=== PATIENT | female | born 1970 | race Caucasian/White ===

== ENCOUNTER 2019-05-12 16:28 | Emergency (ER) | payer MEDICAID ==
[2019-05-12 17:24] LABS: BILIRUBIN,URINE NEGATIVE (NEGATIVE); GLUCOSE, URINE (UA) NEGATIVE (NEGATIVE); KETONES,URINE (UA) NEGATIVE (NEGATIVE); LEUKOCYTE ESTERASE, URINE NEGATIVE (NEGATIVE); NITRITE,URINE POSITIVE (NEGATIVE); OCCULT BLOOD,URINE NEGATIVE (NEGATIVE); PROTEIN,URINE NEGATIVE (NEGATIVE); UROBILINOGEN,URINE 0.2 (NORMAL) E.U./dL (NORMAL)
[2019-05-12 17:26] LABS: CLARITY,URINE CLEAR (CLEAR); HCG UR QUAL NEGATIVE
[2019-05-12 17:34] LABS: BACTERIA,URINE Many /HPF (None Seen); MUCUS,URINE Few Strands; SQUAMOUS EPITHELIAL CELL,UR RARE Squamous (<= Few)
--- NOTE | 2019-05-12 17:51 | ED Physician Documentation ---
PD HPI FEMALE - Stated complaint Stated Complaint: FEMALE - Chief complaint Chief Complaint: Abd Pain - History obtained from History obtained from: Patient - History of Present Illness Timing - onset: How many days ago (5) Timing - duration: Days (5) Timing - details: Gradual onset, Still present Associated symptoms: Back pain, Dysuria, Urinary frequency Similar symptoms before: Diagnosis (pyelo) Recently seen: Not recently seen - Additional information Additional information: Previously well 48-year-old female who was recently moved here about 6 weeks ago has developed some urinary urgency and frequency and this is begin to bother her more and more over the past several days. She is finding some incontinence associated with the urgency. When she developed flank pain she decided to come to the emergency department. She has some slight nausea she has not had a fever. Review of Systems Constitutional: denies: Fever Eyes: denies: Decreased vision Ears: denies: Ear pain Nose: denies: Congestion Throat: denies: Sore throat Respiratory: denies: Dyspnea, Cough GI: reports: Nausea. denies: Abdominal Pain, Vomiting : reports: Dysuria, Frequency, Incontinent Skin: denies: Rash Musculoskeletal: reports: Back pain. denies: Neck pain, Extremity pain PD PAST MEDICAL HISTORY - Present Medications Home Medications: Ambulatory Orders Medication Instructions Recorded Confirmed Sulfamethox/Trimeth 800/160 1 each PO BID #14 tablet 05/12/19 [Bactrim Ds] - Allergies Allergies/Adverse Reactions: Allergies Allergy/AdvReac Type Severity Reaction Status Date / Time No Known Drug Allergies Allergy Verified 05/12/19 16:40 - Social History Does the pt smoke?: No Smoking Status: Never smoker PD ED PE NORMAL - Vitals Vital signs reviewed: Yes (tachy and hypertensive) - General General: Alert and oriented X 3, No acute distress, Well developed/nourished - HEENT HEENT: Atraumatic, PERRL, EOMI - Respiratory Respiratory: No respiratory distress - Back Back: Other (Right CVA tenderness ) - Derm Derm: Normal color, Warm and dry, No rash - Extremities Extremities: No deformity, No edema - Neuro Neuro: Alert and oriented X 3, land department head 2-12 intact, No motor deficit, No sensory deficit, Normal speech Eye Opening: Spontaneous Motor: Obeys Commands Verbal: Oriented GCS Score: 15 - Psych Psych: Normal mood, Normal affect Results - Vitals Vitals: Vital Signs - 24 hr 05/12/19 16:39 Temperature 37 C Heart Rate 103 H Respiratory 20 Rate Blood Pressure 140/83 H O2 Saturation 98 Oxygen O2 Source Room air - Labs Labs: Laboratory Tests 05/12/19 05/12/19 17:13 17:13 Urine Color YELLOW Urine Clarity CLEAR Urine pH 6.0 Ur Specific [place] 1.025 1.025 Urine Protein NEGATIVE Urine Glucose (UA) NEGATIVE Urine Ketones NEGATIVE Urine Occult Blood NEGATIVE Urine Nitrite POSITIVE H Urine Bilirubin NEGATIVE Urine Urobilinogen 0.2 (NORMAL) Ur Leukocyte Esterase NEGATIVE Urine RBC 6-10 H Urine WBC 4-5 Ur Squamous Epith Cells RARE Squamous Urine Bacteria Many H Urine Mucus Few Strands Ur Microscopic Review INDICATED Urine Culture Comments INDICATED Urine HCG, Qual NEGATIVE PD MEDICAL DECISION MAKING - ED course Complexity details: reviewed results, re-evaluated patient, considered differential, d/w patient ED course: 48 y/o female with right peylo is administered IM rocpehin and we will put her on a course of septra. Departure - Departure Disposition: 01 Home, Self Care Clinical Impression: Pyelonephritis Condition: Stable Instructions: ED Kidney Infec Female Follow-Up: [facility] [Provider Group] Prescriptions: Sulfamethox/Trimeth 800/160 [Bactrim Ds] 1 each PO BID #14 tablet Forms: Activity restrictions
[2019-05-12] MEDS ORDERED: LIDOCAINE 1% 2 ML VIAL MC ONE (17:52)
[2019-05-12] MEDS ORDERED: cefTRIAXone 1 GM VIAL IM STA (17:52)
[2019-05-12 18:47] VITALS: BP 153/100
== END 2019-05-12 18:47 | disposition home or self-care (01) ==
LOC: ED 16:28
DX: N12 Tubulo-interstitial nephritis, not specified as acute or chronic (principal)
CPT/HCPCS: 81001; 81003; 81025; 87077; 87086; 87181; 96372; 99283; 99284

== ENCOUNTER 2019-06-24 22:33 | Emergency (ER) | payer MEDICAID ==
[2019-06-24 22:43] VITALS: BP 140/90
[2019-06-24 22:59] LABS: BASOPHILS # (AUTO) 0.1 10^3/uL (0.0-0.1); BASOPHILS % (AUTO) 0.6 %; EOSINOPHILS # (AUTO) 0.3 10^3/uL (0.0-0.7); EOSINOPHILS % (AUTO) 2.8 %; HGB - HEMOGLOBIN 13.8 g/dL (12.0-16.0); LYMPHOCYTES # (AUTO) 3.3 10^3/uL (1.5-3.5); LYMPHOCYTES % (AUTO) 30.7 %; MEAN CORPUSCULAR HEMOGLOBIN 29.7 pg (27.0-31.0); MEAN CORPUSCULAR HGB CONC 32.1 g/dL (32.0-36.0); MEAN CORPUSCULAR VOLUME 92.7 fL (81.0-99.0); MEAN PLATELET VOLUME 9.8 fL (7.9-10.8); NEUTROPHILS % (AUTO) 56.3 %; PLT - PLATELET COUNT 224 10^3/uL (130-450); RED BLOOD COUNT 4.64 10^6/uL (4.20-5.40); RED CELL DISTRIBUTION WIDTH 13.3 % (12.0-15.0); WHITE BLOOD COUNT 10.6 x10^3/uL (4.8-10.8)
[2019-06-24 23:13] LABS: ALBUMIN 3.7 g/dL (3.2-5.5); ALBUMIN/GLOBULIN RATIO 1.1 (1.0-2.2); BILIRUBIN,TOTAL 0.2 mg/dL (0.2-1.0); CALCIUM 8.9 mg/dL (8.5-10.3); CREATININE 0.7 mg/dL (0.4-1.0); TOTAL PROTEIN 7.1 g/dL (6.7-8.2)
--- NOTE | 2019-06-24 23:26 | XRAY Report ---
Reason: Chest pressure Procedure Date: 06/24/2019 Accession Number: [id number] / [id number] Procedure: XR - Chest 2 View X-Ray CPT Code: 08664 Final Report FULL RESULT: EXAM: CHEST RADIOGRAPHY EXAM DATE: 06/24/2019 11:03 PM. CLINICAL HISTORY: Chest pressure. COMPARISON: None. TECHNIQUE: 2 views. FINDINGS: Lungs/Pleura: No focal opacities evident. No pleural effusion. No pneumothorax. Normal volumes. Mediastinum: Heart and mediastinal contours are unremarkable. Other: None. IMPRESSION: Normal 2-view chest radiography. RADIA
[2019-06-24] MEDS ORDERED: BENZONATATE 100 MG CAPSULE PO STA (23:27)
--- NOTE | 2019-06-24 23:43 | ED Physician Documentation ---
PD HPI CHEST PAIN - Stated complaint Stated Complaint: SOA/CHEST PX - Chief complaint Chief Complaint: Resp - Additional information Additional information: This is a 48-year-old female who presents with some tightness in her chest and cough. Patient recently quit smoking, she states that over the last several days she has had a cough which is productive of a small amount of clear sputum. She feels like her breathing is a bit tight, But she does not have actual chest pain. She has had relief of the symptoms in the past with an albuterol inhaler, though it sound like she does not hold a formal diagnosis of COPD. She denies any leg swelling, pleuritic chest pain, history of blood clots. She denies any cardiac history. No fever. She says it feel like she has a bit of bronchitis. 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 : None HEENT: None Psych: None Musculoskeletal: None Derm: None - Past Surgical History Past Surgical History: No - Present Medications Home Medications: Ambulatory Orders Medication Instructions Recorded Confirmed Sulfamethox/Trimeth 800/160 1 each PO BID #14 tablet 05/12/19 [Bactrim Ds] Albuterol Sulfate [Proair Hfa 2 puffs IH Q4H PRN #1 hfa.aer.ad 06/24/19 Inhaler] Benzonatate [Tessalon Perle] 100 - 200 mg PO TID PRN #30 capsule 06/24/19 - Allergies Allergies/Adverse Reactions: Allergies Allergy/AdvReac Type Severity Reaction Status Date / Time No Known Drug Allergies Allergy Verified 06/24/19 22:43 - Social History Does the pt smoke?: Yes Smoking Status: Current every day smoker Does the pt drink ETOH?: Yes Does the pt have substance abuse?: No - Immunizations Immunizations are current?: Yes - POLST Patient has POLST: No PD ED PE NORMAL - Vitals Vital signs reviewed: Yes - General General: Alert and oriented X 3, No acute distress - HEENT HEENT: PERRL - Neck Neck: Supple, no meningeal sign - Cardiac Cardiac: Other (Regular rate and rhythm on my exam) - Respiratory Respiratory: No respiratory distress, Clear bilaterally - Abdomen Abdomen: Soft, Non tender, Non distended - Derm Derm: Warm and dry - Extremities Extremities: No deformity - Neuro Neuro: Alert and oriented X 3 - Psych Psych: Normal mood, Normal affect Results - Vitals Vitals: Vital Signs - 24 hr 06/24/19 06/24/19 22:35 22:53 Temperature 36.6 C 36.6 C Heart Rate 101 H 101 H Respiratory 18 18 Rate Blood Pressure 140/90 H 140/90 H O2 Saturation 97 97 Oxygen O2 Source Room air - EKG (time done) 22:37 Other comments: Other comments (Rate 91, rhythm sinus with occasional PVC. There is no ST segment elevation. There is no significant ST segment depressio n. There is some T wave flattening in the inferior leads. [place] interval is borderline prolonged) - Labs Labs: Laboratory Tests 06/24/19 06/24/19 06/24/19 22:55 22:55 22:55 WBC 10.6 RBC 4.64 Hgb 13.8 Hct 43.0 MCV 92.7 MCH 29.7 MCHC 32.1 RDW 13.3 Plt Count 224 MPV 9.8 Neut # (Auto) 6.0 Lymph # (Auto) 3.3 [place] # (Auto) 1.0 Eos # (Auto) 0.3 Baso # (Auto) 0.1 Absolute Nucleated RBC 0.00 Nucleated RBC % 0.0 Sodium 140 Potassium 4.1 Chloride 104 Carbon Dioxide 26 Anion Gap 10.0 BUN 15 Creatinine 0.7 Estimated GFR (MDRD) 90 Glucose 131 H Calcium 8.9 Total Bilirubin 0.2 AST 25 ALT 28 Alkaline Phosphatase 74 Troponin I High Sens < 2.3 L Total Protein 7.1 Albumin 3.7 Globulin 3.4 Albumin/Globulin Ratio 1.1 Lipase 34 - Rads (name of study) CXR Radiology: Other (No acute cardiopulmonary abnormality) PD MEDICAL DECISION MAKING - ED course Complexity details: considered differential (Bronchitis, pneumonia, upper respiratory infection, COPD, Pneumothorax, ACS, dysrhythmia, PE) ED course: Patient is well-appearing on examination, she has a cough but her lungs sound clear. Chest x-ray shows no acute cardiopulmonary abnormality. Labs are drawn and are unremarkable, she has no leukocytosis, her troponin is normal. Her EKG does not show convincing signs of ischemia or dysrhythmia. Her history makes cardiac cause of her symptoms unlikely, this appears to be a viral syndrome, perhaps exacerbated by her recent cessation of smoking. She has no signs or history of blood clots, no pain in her chest, her oxygen saturation is normal, she has no signs of DVT, and pulmonary embolism is extremely unlikely. I discu ssed supportive care, prescribed her Tessalon Perles as well as albuterol, and recommended close follow-up with her primary care provider if she is not having improvement. I also discussed return precautions. Patient agrees and was discharged home in good condition Departure - Departure Disposition: 01 Home, Self Care Clinical Impression: Cough Condition: Good Follow-Up: Your,PCP [Other] Prescriptions: Albuterol Sulfate [Proair Hfa Inhaler] 2 puffs IH Q4H PRN #1 hfa.aer.ad PRN Reason: Shortness Of Air/Wheezing Benzonatate [Tessalon Perle] 100 - 200 mg PO TID PRN #30 capsule PRN Reason: Cough Comments: You were seen today for some cough and shortness of breath. I do not see signs of pneumonia or issues with your heart today. Please try the Tessalon Perles and the albuterol inhaler. If you are having worsening shortness of breath, or other concerning symptoms such as fever, coughing up blood, chest pain,or any other concerning symptoms please return to the emergency department Discharge Date/Time: 06/24/19 23:52
== END 2019-06-24 23:52 | disposition home or self-care (01) ==
LOC: ED 22:33
DX: R05 Cough (principal); R06.02 Shortness of breath; I49.3 Ventricular premature depolarization; Z87.891 Personal history of nicotine dependence
CPT/HCPCS: 36415; 71046; 80053; 83690; 84484; 85025; 93005; 99284; A9270

== ENCOUNTER 2019-09-22 08:59 | Outpatient (CLI) | payer MEDICAID ==
--- NOTE | 2019-09-22 20:04 | XRAY Report ---
Reason: NECK AND BACK PAIN Procedure Date: 09/22/2019 Accession Number: [id number] / [id number] Procedure: XRN - Cervical Spine 2 View CPT Code: Final Report FULL RESULT: EXAM: CERVICAL SPINE RADIOGRAPHY EXAM DATE: 09/22/2019 09:21 AM. CLINICAL HISTORY: Right upper limb numbness for 1 year. COMPARISONS: None. TECHNIQUE: 4 views. FINDINGS: Alignment: There is straightening of the cervical lordosis. Bones: The cervical vertebral bodies and posterior elements are well visualized from the skull base through C7-T1. No fractures or bone lesions. Disks: There are small endplate osteophytes at C5-C6. The disk spaces are preserved. Facets: No degenerative disease. Soft Tissues: Normal. No prevertebral soft tissue swelling. The visualized lung apices are clear. IMPRESSION: Mild degenerative change of the cervical spine. RADIA
== END 2019-09-22 09:00 | disposition home or self-care (01) ==
LOC: DI.N 08:59
PROVIDERS: ATTEND Family Medicine
DX: M54.2 Cervicalgia (principal); M54.9 Dorsalgia, unspecified; M47.892 Other spondylosis, cervical region
CPT/HCPCS: 72040

== ENCOUNTER 2019-11-06 20:54 | Emergency (ER) | payer MEDICAID ==
--- NOTE | 2019-11-06 21:23 | ED Physician Documentation ---
History of Present Illness - Stated complaint Stated Complaint: SOA, TIGHTNESS IN CHEST/UPPER BACK - Chief complaint Chief Complaint: Resp - History obtained from History obtained from: Patient (49-year-old woman moved up from [place] for a job change in May. Ever since then she is had a lot of trouble with shortness of breath. She does have more problems when she is supine or exertional. She denies pedal edema or calf pain. She has some diffuse back and chest pain with this. She has a minimally productive cough. She was on antibiotics and steroids about 3 weeks ago which were briefly helpful.) Review of Systems Constitutional: reports: Fatigue. denies: Fever, Chills Throat: denies: Sore throat Cardiac: reports: Chest pain / pressure. denies: Palpitations, Pedal edema, Calf pain Respiratory: reports: Dyspnea, Cough. 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 HEENT: None Psych: None Musculoskeletal: None Derm: None - Past Surgical History Past Surgical History: No - Present Medications Home Medications: Ambulatory Orders Medication Instructions Recorded Confirmed Sulfamethox/Trimeth 800/160 1 each PO BID #14 tablet 05/12/19 [Bactrim Ds] Albuterol Sulfate [Proair Hfa 2 puffs IH Q4H PRN #1 hfa.aer.ad 06/24/19 Inhaler] Benzonatate [Tessalon Perle] 100 - 200 mg PO TID PRN #30 capsule 06/24/19 Albuterol Sulf [Ventolin Hfa 1 - 2 puffs INH Q4HR PRN #1 inhaler 11/06/19 Inhaler] Doxycycline Hyclate 100 mg PO BID #20 capsule 11/06/19 Fluticasone/Salmeterol [Advair 1 each IH BID #3 blst.w.dev 11/06/19 250-50 Diskus] predniSONE [Deltasone] 20 mg PO [id number] #[id number] tab 11/06/19 - Allergies Allergies/Adverse Reactions: Allergies Allergy/AdvReac Type Severity Reaction Status Date / Time No Known Drug Allergies Allergy Verified 06/24/19 22:43 - Social History Does the pt smoke?: No Smoking Status: Former smoker Does the pt drink ETOH?: Yes Does the pt have substance abuse?: No - Immunizations Immunizations are current?: Yes - POLST Patient has POLST: No PD ED PE NORMAL - Vitals Vital signs reviewed: Yes (Tachycardic, hypertensive) - General General: Alert and oriented X 3, No acute distress - Neck Neck: Supple, no meningeal sign, No bony TTP - Cardiac Cardiac: RRR, No murmur - Respiratory Respiratory: No respiratory distress, Other (Slightly diminished throughout without focal findings) - Abdomen Abdomen: Non tender - Extremities Extremities: No edema, No calf tenderness / cord - Neuro Neuro: Alert and oriented X 3, Normal speech Results - Vitals Vitals: Vital Signs - 24 hr 11/06/19 11/06/19 11/06/19 20:59 21:02 21:48 Temperature 36.1 C L Heart Rate 107 H 107 H 99 Respiratory 18 18 15 Rate Blood Pressure 153/114 H 153/114 H 129/85 H O2 Saturation 98 98 95 11/06/19 23:02 Temperature Heart Rate 90 Respiratory 16 Rate Blood Pressure 114/77 O2 Saturation 96 Oxygen O2 Source Room air - EKG (time done) 2107 Rate: Rate (enter#) (96) Rhythm: NSR (with freq pvcs) [place]: Normal Intervals: Normal [place] QRS: Normal Ischemia: Non specific changes Computer interpretation: Agree with computer - Labs Labs: Laboratory Tests 11/06/19 11/06/19 11/06/19 21:30 21:30 21:30 WBC 11.7 H RBC 4.76 Hgb 14.6 Hct 43.5 MCV 91.4 MCH 30.7 MCHC 33.6 RDW 13.0 Plt Count 269 MPV 9.3 Neut # (Auto) 7.4 H Lymph # (Auto) 3.0 [place] # (Auto) 0.8 Eos # (Auto) 0.3 Baso # (Auto) 0.1 Absolute Nucleated RBC 0.00 Nucleated RBC % 0.0 Sodium 137 Potassium 3.9 Chloride 103 Carbon Dioxide 23 Anion Gap 11.0 BUN 16 Creatinine 0.6 Estimated GFR (MDRD) 107 Glucose 115 H Calcium 8.5 Total Bilirubin 0.4 AST 38 ALT 40 Alkaline Phosphatase 79 Troponin I High Sens 3.1 B-Natriuretic Peptide Total Protein 7.7 Albumin 3.9 Globulin 3.8 Albumin/Globulin Ratio 1.0 Lipase 30 11/06/19 21:30 WBC RBC Hgb Hct MCV MCH MCHC RDW Plt Count MPV Neut # (Auto) Lymph # (Auto) [place] # (Auto) Eos # (Auto) Baso # (Auto) Absolute Nucleated RBC Nucleated RBC % Sodium Potassium Chloride Carbon Dioxide Anion Gap BUN Creatinine Estimated GFR (MDRD) Glucose Calcium Total Bilirubin AST ALT Alkaline Phosphatase Troponin I High Sens B-Natriuretic Peptide 33 Total Protein Albumin Globulin Albumin/Globulin Ratio Lipase - Rads (name of study) CT PA Radiology: EMP read contemporaneously Departure - Departure Disposition: Home, Self Care Clinical Impression: Acute exacerbation of chronic bronchitis Dyspnea Qualifiers: Dyspnea type: shortness of breath Qualified Code(s): R06.02 - Shortness of breath Condition: Good Record reviewed to determine appropriate education?: Yes Instructions: ED Bronchitis Asthmatic Prescriptions: Albuterol Sulf [Ventolin Hfa Inhaler] 1 - 2 puffs INH Q4HR PRN #1 inhaler PRN Reason: Shortness Of Air/Wheezing Doxycycline Hyclate 100 mg PO BID #20 capsule Fluticasone/Salmeterol [Advair 250-50 Diskus] 1 each IH BID #3 blst.w.dev predniSONE [Deltasone] 20 mg PO [id number] #21 tab Comments: Work-up today consisted of a CT pulmonary angiogram which showed changes consistent with chronic bronchitis. No evidence of blood clot or pneumonia. No emphysema. Blood work with normal BNP, troponin, renal function rules out an acute Heart issue or congestive heart failure. Not unreasonable to follow-up with a line erector apprentice. There is not one [place] the [place], I would recommend going up to [place]. Some options would be either [facility] Galindo or De[facility] Henry, Phone number for either is [phone]. Discharge Date/Time: 11/06/19 23:13
[2019-11-06] MEDS ORDERED: IOVERSOL 320 100 ML VIAL IVP ONE ×2 (21:31→22:20)
[2019-11-06 21:33] LABS: BASOPHILS # (AUTO) 0.1 10^3/uL (0.0-0.1); BASOPHILS % (AUTO) 0.7 %; EOSINOPHILS # (AUTO) 0.3 10^3/uL (0.0-0.7); EOSINOPHILS % (AUTO) 2.7 %; HGB - HEMOGLOBIN 14.6 g/dL (12.0-16.0); LYMPHOCYTES % (AUTO) 25.6 %; MEAN CORPUSCULAR HEMOGLOBIN 30.7 pg (27.0-31.0); MEAN CORPUSCULAR HGB CONC 33.6 g/dL (32.0-36.0); MEAN CORPUSCULAR VOLUME 91.4 fL (81.0-99.0); MEAN PLATELET VOLUME 9.3 fL (7.9-10.8); MONOCYTES # (AUTO) 0.8 10^3/uL (0.0-1.0); MONOCYTES % (AUTO) 6.9 %; NEUTROPHILS # (AUTO) 7.4 10^3/uL (1.5-6.6); NEUTROPHILS % (AUTO) 63.6 %; PLT - PLATELET COUNT 269 10^3/uL (130-450); RED BLOOD COUNT 4.76 10^6/uL (4.20-5.40); WHITE BLOOD COUNT 11.7 x10^3/uL (4.8-10.8)
[2019-11-06 21:48] LABS: ALBUMIN 3.9 g/dL (3.2-5.5); BILIRUBIN,TOTAL 0.4 mg/dL (0.2-1.0); CALCIUM 8.5 mg/dL (8.5-10.3); CREATININE 0.6 mg/dL (0.4-1.0); TOTAL PROTEIN 7.7 g/dL (6.7-8.2)
--- NOTE | 2019-11-06 22:52 | CT Report ---
Reason: dyspnea, pe protocol Procedure Date: 11/06/2019 Accession Number: [id number] / [id number] Procedure: CT - ANGIO CHEST W/WO CPT Code: Final Report FULL RESULT: EXAM: CT ANGIOGRAM CHEST EXAM DATE: 11/06/2019 10:17 PM. CLINICAL HISTORY: Dyspnea, pulmonary embolism protocol. COMPARISON: None. TECHNIQUE: Routine helical imaging was performed through the chest in the pulmonary arterial phase. IV Contrast: Yes. Reconstructions: Coronal 3-D MIP reconstructions.Sagittal and coronal. In accordance with CT protocol optimization, one or more of the following dose reduction techniques were utilized for this exam: automated exposure control, adjustment of mA and/or KV based on patient size, or use of iterative reconstructive technique. FINDINGS: Pulmonary Arteries: Technically suboptimal for evaluation through the segmental arteries due to bolus timing. No large or moderate central pulmonary emboli. Small emboli cannot be excluded. Lungs/pleura: Bronchial wall thickening. No pneumonia, suspicious nodules, or edema. No effusions or pneumothorax. Mediastinum: No acute aortic syndrome. No cardiac enlargement. No adenopathy. Upper Abdomen: Fatty liver. Other: Breast implants. IMPRESSION: 1. No large or moderate central pulmonary emboli identified. Small emboli cannot be excluded due to bolus timing. No secondary signs of pulmonary embolism however. 2. Bronchial wall thickening which can be seen with acute and/or chronic bronchitis. 3. Fatty liver. RADIA
[2019-11-06] MEDS ORDERED: DOXYCYCLINE 100 MG TABLET PO STA (23:02)
[2019-11-06 23:03] VITALS: BP 114/77
== END 2019-11-06 23:13 | disposition home or self-care (01) ==
LOC: ED 20:54
DX: J42 Unspecified chronic bronchitis (principal); Z87.891 Personal history of nicotine dependence; J45.909 Unspecified asthma, uncomplicated
CPT/HCPCS: 36415; 71275; 80053; 83690; 83880; 84484; 85025; 93005; 99284; A9270; Q9967

== ENCOUNTER 2020-01-06 08:00 | Outpatient (CLI) | payer MEDICAID | END 2020-01-06 23:59 | disposition home or self-care (01) | LOC: LAB 08:00 | PROVIDERS: ATTEND Family Medicine | DX: Z20.828 Contact with and (suspected) exposure to other viral communicable diseases (principal); J02.9 Acute pharyngitis, unspecified | CPT/HCPCS: 81599 ==

== ENCOUNTER 2020-07-08 21:18 | Emergency (ER) | payer MEDICAID ==
[2020-07-08] MEDS ORDERED: predniSONE 20 MG TABLET PO STA (21:38)
--- NOTE | 2020-07-08 21:41 | ED Physician Documentation ---
History of Present Illness - Stated complaint Stated Complaint: SOA - Chief complaint Chief Complaint: Resp - History obtained from History obtained from: Patient - Additonal information Additional information: Patient comes emergency department complaining that her asthma has been acting up lately. She states it happens about twice a year, especially since moving here a year and a half ago from [place]. She states that she has not had a productive cough and has had no fever. She states it does not feel like she is ill with anything. She has not had congestion. No sore throat or abdominal sy mptoms. Patient states that she already takes Advair and Flovent, and that she has enough of these. She feels that at this point, all she needs is a course of steroids. Of note, patient states that she lives in a long term and that she is tested for Covid on a weekly basis because of this. She states that so far, her tests have all been negative. Review of Systems Ten Systems: 10 systems reviewed and negative Constitutional: reports: Reviewed and negative Eyes: reports: Reviewed and negative Ears: reports: Reviewed and negative Nose: reports: Reviewed and negative Throat: reports: Reviewed and negative Cardiac: reports: Reviewed and negative Respiratory: reports: Dyspnea GI: reports: Reviewed and negative : reports: Reviewed and negative Skin: reports: Reviewed and negative Musculoskeletal: reports: Reviewed and negative Neurologic: reports: Reviewed and negative Psychiatric: reports: Reviewed and negative Endocrine: reports: Reviewed and negative Immunocompromised: reports: Reviewed and negative PD PAST MEDICAL HISTORY - Past Medical History Past Medical History: Yes Cardiovascular: None Respiratory: Asthma, Shortness of breath Neuro: None Endocrine/Autoimmune: None GI: None 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 HEENT: None Psych: None Musculoskeletal: None Derm: None - Past Surgical History Past Surgical History: No - Present Medications Home Medications: Ambulatory Orders Medication Instructions Recorded Confirmed Albuterol Sulfate [Proair 90 mcg IH PRN PRN 07/08/20 07/08/20 Respiclick] Escitalopram [Lexapro] 10 mg PO DAILY 07/08/20 07/08/20 Fluticasone/Salmeterol [Advair 250 dis.syr INH 1-2XD 07/08/20 07/08/20 250-50 Diskus] Zolpidem Tartrate [Ambien] 10 mg PO DAILY 07/08/20 07/08/20 predniSONE [Deltasone] 60 mg PO DAILY 5 Days #15 tablet 07/08/20 - Allergies Allergies/Adverse Reactions: Allergies Allergy/AdvReac Type Severity Reaction Status Date / Time penicillin V Allergy Hives Verified 07/08/20 21:24 - Social History Does the pt smoke?: No Smoking Status: Never smoker Does the pt drink ETOH?: Yes Does the pt have substance abuse?: No - Immunizations Immunizations are current?: Yes - POLST Patient has POLST: No PD ED PE NORMAL - Vitals Vital signs reviewed: Yes - General General: Alert and oriented X 3, No acute distress - HEENT HEENT: Atraumatic, PERRL, EOMI, Moist mucous membranes - Neck Neck: Supple, no meningeal sign - Cardiac Cardiac: RRR, No murmur - Respiratory Respiratory: No respiratory distress, Clear bilaterally - Abdomen Abdomen: Soft, Non tender, Non distended - Derm Derm: Normal color, Warm and dry, No rash - Extremities Extremities: No deformity, No edema - Neuro Neuro: Alert and oriented X 3 - Psych Psych: Normal mood, Normal affect Results - Vitals Vitals: Vital Signs - 24 hr 07/08/20 07/08/20 21:21 21:23 Temperature 36.8 C 36.8 C Heart Rate 105 H 105 H Respiratory 22 22 Rate Blood Pressure 142/95 H 142/95 H O2 Saturation 97 97 Oxygen O2 Source Room air PD MEDICAL DECISION MAKING - ED course Complexity details: considered differential, d/w patient ED course: The patient was very well-appearing in the emergency department, I felt that she did likely this need to have a course of steroids added to her usual inhalers. Her lungs were clear and oxygen saturation was good. She was given her first dose of prednisone 60 mg here in the emergency department, and was given a prescription for the same. We have discussed that the patient developed severe difficulty breathing, fevers, or productive cough, she will need to be seen again in the emergency department. Departure - Departure Disposition: 01 Home, Self Care Clinical Impression: Asthma exacerbation Condition: Stable Instructions: ED Reactive Airway Disease Prescriptions: predniSONE [Deltasone] 60 mg PO DAILY 5 Days #15 tablet
[2020-07-08 21:45] VITALS: BP 140/88
== END 2020-07-08 21:44 | disposition home or self-care (01) ==
LOC: ED 21:18
DX: J45.901 Unspecified asthma with (acute) exacerbation (principal)
CPT/HCPCS: 99282; 99283; J7512

== ENCOUNTER 2020-08-31 07:51 | Outpatient (CLI) | payer OTHER, MEDICAID ==
[2020-08-31 08:38] VITALS: BP 122/82
--- NOTE | 2020-08-31 08:38 | SLEEP CARE CONSULTATION ---
Information from patient questionnaire entered by Ann Ragland. I have reviewed and concur with the information entered by Ann Ragland. This document represents the service I personally performed and the decisions made by me, Melissa Coates ARNP. History of Present Illness Service Date and Time: 08/31/2020 0751 Reason for Visit: New patient Chief Complaint: reports: Unrefreshed sleep, Snoring, Observed pauses in breathing, Fatigue, Frequent awakenings at night Date of Onset: 2 years Usual bedtime: 10 pm Time it takes to fall asleep: 5 minutes Snores at night: Yes Observed to quit breathing while asleep: Yes Sleeps alone due to snoring: No (ear plugs, if he could he would) Number of times waking at night: 0 since starting the Ambien Reasons for waking at night: reports: Choking (only with acid reflux), Snoring Toss, Turn, or Twitch while sleeping: Yes Recalls having dreams: No (rarely) Usually gets out of bed at: 6-6:30 am Feels refreshed in the morning: No Morning headache: No Sleepy or fatigued during the day: Yes Ever fallen asleep while driving: No Takes day naps: No Dreams during day naps: No Prior sleep studies: No Additional HPI information: I had the pleasure of seeing YAHAIRA NAVA today regarding the possibility of her having a sleep disorder. Her current complaints are snoring and fatigue. For the last 1.5-2 years she can lay in bed and feels like her throat closing up and it will wake her up. She thinks her jaw will push down. She snores very loudly. She has been noted to stop breathing while sleeping. She does get choking but only a few times a year with acid reflux. She wakes up feeling tired. She is tired all the time. Her PCP gave her Ambien to use because she was getting up/awake 7-8 times a night. She has been taking this for the last 7 months. - Parasomnia Symptoms Ever been unable to move upon waking from sleep: No Walks in sleep: No Talks in sleep: Yes (mumbling) Ever acted out dreams in sleep: No Ever felt weak in the knees when startled or emotional: No Bothered by creepy, crawly, restless sensations in legs: No Problems with memory or concentration: No Subjective Initial Hindman Sleepiness Scale score: 7 (in 2020) Past Medical History Past Medical History: reports: Depression Social History The patient's occupation is a [employer]. Patient is and lives in [place]. Have you smoked in the past 12 months: No Cigarettes per day (20/pack): 20 Years of smokin Quit date: 07/13/2020 Smoking Pack Years: 25.0 Alcohol use: No Caffeine use: No Family History Family history of sleep disordered breathing: No Allergies and Home Medications Drug allergies reviewed: Yes (penicillin) Home medication list reviewed: Yes Allergy and home medication list: Chantix Antidepressant - just started couple days ago Ambien Vitamin B12 vitamin D3 Multivitamin Review of Systems Weight gain over past 5 years: 60 Cardiovascular: denies: high blood pressure Respiratory: reports: shortness of breath, chronic cough Gastrointestinal: reports: difficulty swallowing Neurological: denies: headaches, head trauma Ear/Nose/Throat: reports: nasal congestion, dry mouth/throat, tonsillectomy, wisdom teeth removed. denies: injury to nose Endocrine: reports: thyroid disease Immunologic: denies: allergies to food or environment Physical Exam Blood Pressure: 122/82 Cuff size: wrist Heart Rate: 91 O2 Saturation: 98 Height: 5 ft 6 in Weight: 258 lb Body Mass Index: 41.6 BMI Classification: Morbidly Obese Neck circumference: 16.25 (inches) Nostrils: patent to airflow Turbinates: swollen Mouth and throat: narrow oropharynx Soft palate: long Hard palate: normal Uvula: normal Uvula visualization: 50% Mallampati Class II Tongue: normal in size Tonsils: absent bilaterally Neck: normal w/o lymphadenopathy or thyromegaly Heart: regular rate and rhythm Lungs: clear bilaterally Impression and Plan 1. Suspected Obstructive Sleep Apnea-Hypopnea Syndrome, as suggested by a history of loud and irregular snoring, observed cessation of breath while asleep, frequent awakening during the night, and unrefreshed sleep. Narrow oropharynx and obesity are common predisposing factors for obstructive sleep apnea-hypopnea syndrome. I recommend proceeding to polysomnography to confirm the diagnosis and to assess severity. If the patient has significant sleep disordered breathing, a manual CPAP titration study will also be performed to fi nd the optimal treatment pressure. I informed the patient of what the sleep studies involve and after some discussion, obtained agreement to proceed. The pathophysiology of obstructive sleep apnea-hypopnea syndrome was discussed with the patient and health risks of cardiovascular and cerebrovascular disease if not treated. AAS brochure for obstructive sleep apnea-hypopnea syndrome given and reviewed. Risks of drowsy driving discussed in detail and patient advised to avoid long distance driving and to boat puller at the first sign of drowsiness. Patient agreed to plan. * Schedule polysomnography +- manual CPAP titration study and return in 1-2 weeks after the study to discuss result and initiate therapy. * Avoid long distance driving or driving when feeling sleepy. * Avoid alcohol, sedative and muscle relaxant around bedtime. * Attempt to lose weight. * Review instructions provided by trained office staff on how to prepare for the sleep study. * Return for follow-up after sleep study completed. Counseling Topics: Weight loss health impact Visit Type: In Office Time Spent with Patient (minutes): 30 Provider Statement: I spent 100% of the Face to Face Visit with the patient with greater than 50% spent counseling the patient and coordination of care.
== END 2020-08-31 07:52 | disposition home or self-care (01) ==
LOC: SC 07:51
PROVIDERS: ATTEND Nurse Practitioner Family
DX: R06.81 Apnea, not elsewhere classified (principal); G47.8 Other sleep disorders; R06.83 Snoring; E66.01 Morbid (severe) obesity due to excess calories; Z68.41 Body mass index [BMI] 40.0-44.9, adult; Z87.891 Personal history of nicotine dependence
CPT/HCPCS: 99203; 99212

== ENCOUNTER 2020-08-31 08:40 | Outpatient (CLI) | payer OTHER, MEDICAID ==
[2020-08-31 11:58] LABS: BASOPHILS # (AUTO) 0.1 10^3/uL (0.0-0.1); BASOPHILS % (AUTO) 0.5 %; EOSINOPHILS # (AUTO) 0.5 10^3/uL (0.0-0.7); EOSINOPHILS % (AUTO) 4.1 %; HGB - HEMOGLOBIN 14.9 g/dL (12.0-16.0); LYMPHOCYTES # (AUTO) 2.6 10^3/uL (1.5-3.5); LYMPHOCYTES % (AUTO) 22.6 %; MEAN CORPUSCULAR HEMOGLOBIN 29.4 pg (27.0-31.0); MEAN CORPUSCULAR HGB CONC 32.3 g/dL (32.0-36.0); MEAN CORPUSCULAR VOLUME 90.9 fL (81.0-99.0); MEAN PLATELET VOLUME 9.8 fL (7.9-10.8); MONOCYTES # (AUTO) 0.7 10^3/uL (0.0-1.0); MONOCYTES % (AUTO) 6.3 %; NEUTROPHILS # (AUTO) 7.5 10^3/uL (1.5-6.6); NEUTROPHILS % (AUTO) 66.1 %; PLT - PLATELET COUNT 269 10^3/uL (130-450); RED BLOOD COUNT 5.07 10^6/uL (4.20-5.40); RED CELL DISTRIBUTION WIDTH 12.9 % (12.0-15.0); WHITE BLOOD COUNT 11.4 x10^3/uL (4.8-10.8)
[2020-08-31 12:17] LABS: ALBUMIN 4.5 g/dL (3.2-5.5); ALBUMIN/GLOBULIN RATIO 1.3 (1.0-2.2); ALKALINE PHOSPHATASE 52 IU/L (42-121); ALT ALANINE AMINOTRANSFERASE 58 IU/L (10-60); AST ASPARTATE AMINOTRANSFERASE 47 IU/L (10-42); BILIRUBIN,TOTAL 0.8 mg/dL (0.2-1.0); BUN - BLOOD UREA NITROGEN 14 mg/dL (6-20); CALCIUM 9.6 mg/dL (8.5-10.3); CARBON DIOXIDE - CO2 25 mmol/L (21-32); CHLORIDE 101 mmol/L (101-111); CHOL/HDL RATIO 5.3 (<4.4); CHOLESTEROL 232 mg/dL; CREATININE 0.6 mg/dL (0.4-1.0); GLUCOSE 106 mg/dL (70-100); HDL CHOLESTEROL 44 mg/dL; LDL CHOLESTEROL,CALCULATED 157 mg/dL; LDL/HDL RATIO 3.6 (<4.4); VLDL CHOLESTEROL 31 mg/dL
== END 2020-08-31 08:41 | disposition home or self-care (01) ==
LOC: LAB.N 08:40
PROVIDERS: ATTEND Physician Assistant Medical
DX: Z00.00 Encounter for general adult medical examination without abnormal findings (principal)
CPT/HCPCS: 36415; 80053; 80061; 83721; 84443; 85025

== ENCOUNTER 2020-09-12 07:53 | Outpatient (CLI) | payer OTHER, MEDICAID | END 2020-09-12 07:54 | disposition home or self-care (01) | LOC: SC 07:53 | PROVIDERS: ATTEND Nurse Practitioner Family | DX: G47.33 Obstructive sleep apnea (adult) (pediatric) (principal); R09.02 Hypoxemia; E66.01 Morbid (severe) obesity due to excess calories; Z68.41 Body mass index [BMI] 40.0-44.9, adult | CPT/HCPCS: 95806 ==

== ENCOUNTER 2020-09-20 07:41 | Outpatient (CLI) | payer OTHER, MEDICAID ==
--- NOTE | 2020-09-20 08:20 | SLEEP CARE CONSULTATION ---
Information from patient questionnaire entered by Ann Ragland. I have reviewed and concur with the information entered by Ann Ragland. This document represents the service I personally performed and the decisions made by , Melissa Coates ARNP. History of Present Illness Service Date and Time: 09/20/2020 07 Initial [place] Sleepiness Scale score: 7 (in 2020) Current [place] Sleepiness Scale score: 6 Additional HPI information: YAHAIRA NAVA returns for follow up and results of the recently performed home sleep study. She was found to have mild sleep apnea. I explained the pathophysiology behind obstructive sleep apnea. We then spent quite a bit of time discussing different treatment options. For mild obstructive sleep apnea, surgery and oral appliance are alternatives to nasal CPAP therapy but in moderate or severe cases, nasal CPAP is the most effective and reliable treatment. Because apnea is primarily in supine position, then positional management therapy could be effective. Methods discussed such as positioning with pillows, using a T-shirt with tennis balls in the back, and shown commercial products that have a pillow format on back to prevent supine sleep. I reviewed the impact of weight changes on sleep apnea and strongly recommended losing weight. After some discussion, the patient opted to go with the nasal CPAP therapy. Nasal autoCPAP set at 4-15 cmH20 will be ordered with rationale explained. A manual titration study will be ordered if unable to find optimal pressure with office adjustments. I explained how CPAP machine works with sample devices [employer]ics Dreamstation and [employer] [id number] and what to expect when using the machine. Using CPAP every night in order to get used to it was emphasized. Patient advised to put CPAP mask on before getting into bed so as not to fall asleep without CPAP. To assist acclimation to CPAP use, it could also be used for a short time during day while reading or watching TV. The patient was instructed to call the CPAP supplier to discuss any mechanical problem that may occur. If the mask given is uncomfortable or is difficult to keep on through the night even with adjustment, contact the CPAP supplier as many will replace with another mask style if notified before 30 days. If snoring or perceives is not getting enough air or too much air from the machine, notify this office. AAS patient education PAP tips reviewed and given to patient. Patient does not drink alcohol. Patient was cautioned about risks of drowsy driving until sleepiness symptoms resolve. Sleep Study - Results Type of Sleep Study: Home sleep study Prior sleep studies: No Polysomnography/Home Sleep Study results: Physician Impression: The quality of the study is good. The length of the study is adequate (> 240 minutes). Please also see the tabulated and graphic data. 1. Obstructive Sleep Apnea-Hypopnea (ICD-10 G47.33), mild, with an AHI of 12.0 /hr and reji SaO2 of 79%. During the study, the patient had 53 apneas (52 obstructive, 0 central, 1 mixed) and 39 hypopneas. The longest episode lasted 78.0 seconds. The respiratory events occ urred slightly more frequently during supine sleep (supine AHI was 14.0 and non-supine, 11.47). 2. Hypoxemia (ICD-10 R09.02), moderate, with the lowest oxygen saturation of 79 % and 19.1 minutes with SaO2 under 90%. Baseline oxygen saturation was normal (Average oxygen saturation was 93%). Allergies and Home Medications Drug allergies reviewed: Yes (penicillin V) Home medication list reviewed: Yes (no changes) Review of Systems Review of systems same as previous: Yes (no changes) Physical Exam Heart Rate: 86 O2 Saturation: 98 Height: 5 ft 6 in Weight: 259 lb Body Mass Index: 41.8 BMI Classification: Morbidly Obese Impression and Plan 1. Obstructive Sleep Apnea-Hypopnea Syndrome, mild, with lowest oxygen saturation of 79%. Obviously this is the cause of the patients symptoms of unrefreshed sleep, and excessive daytime sleepiness. Positive pressure therapy could benefit depression. As mentioned above, the patient will be started on nasal autoCPAP therapy with pressure set at 4-15 cmH2O. A manual titration study will be completed if unable to find optimal treatment pressure with office adjustments. Compliance guidelines also reviewed. A copy of compliance guidelines will be given for reference at check out. Because the apnea is more severe supine, I instructed to avoid sleeping supine using pillow positioning until able to start CPAP use. 2. Hypoxemia, moderate, with the lowest oxygen saturation of 79 % and 19.1 minutes with SaO2 under 90%. Her baseline oxygen saturation was normal with an average oxygen saturation was 93%. 3. Obesity, unspecified. Patient was encouraged to try to lose weight. She just quit smoking and she is waiting for her 3 month anjum before starting on her weight loss. * Nasal auto CPAP therapy, pressure at 4-15 cm H2O. * Attempt to lose weight. * Avoid alcohol consumption near bedtime. * Avoid supine sleep until using CPAP. * The patient is again cautioned about driving until sleepiness completely resolves. * Return one month after CPAP obtained. I will assess response to therapy and compliance at that time. Counseling Topics: Weight loss health impact Visit Type: In Office Time Spent with Patient (minutes): 21 Provider Statement: I spent 100% of the Face to Face Visit with the patient with greater than 50% spent counseling the patient and coordination of care.
== END 2020-09-20 07:42 | disposition home or self-care (01) ==
LOC: SC 07:41
PROVIDERS: ATTEND Nurse Practitioner Family
DX: G47.33 Obstructive sleep apnea (adult) (pediatric) (principal); E66.01 Morbid (severe) obesity due to excess calories; Z68.41 Body mass index [BMI] 40.0-44.9, adult
CPT/HCPCS: 99212; 99213

== ENCOUNTER 2020-11-15 08:00 | Outpatient (CLI) | payer MEDICAID, OTHER ==
[2020-11-15 22:14] LABS: CHLAMYDIA TRACHOMATIS DNA NEGATIVE (NEGATIVE); NEISSERIA GONORRHOEAE DNA NEGATIVE (NEGATIVE); TRICHOMONAS VAGINALIS DNA NEGATIVE (NEGATIVE)
[2020-11-16 14:32] LABS: HIV AG/AB 4TH GEN NON-REACTIVE (NON-REACTIVE)
[2020-11-17 15:01] LABS: HSV 1 IGG TYPE SPECIFIC AB >58.00 index; HSV 2 IGG TYPE SPECIFIC AB <0.90 index
== END 2020-11-15 23:59 | disposition home or self-care (01) ==
LOC: LAB.WCP 08:00
PROVIDERS: ATTEND Physician Assistant Medical
DX: Z20.2 Contact with and (suspected) exposure to infections with a predominantly sexual mode of transmission (principal)
CPT/HCPCS: 36415; 81599; 86592; 86695; 86696; 87389; 87491; 87591; 87661

== ENCOUNTER 2021-04-30 18:36 | Emergency (ER) | payer MEDICAID, OTHER ==
[2021-04-30 18:58] VITALS: BP 154/101
[2021-04-30 19:10] LABS: BASOPHILS # (AUTO) 0.1 10^3/uL (0.0-0.1); BASOPHILS % (AUTO) 0.8 %; EOSINOPHILS # (AUTO) 0.5 10^3/uL (0.0-0.7); EOSINOPHILS % (AUTO) 3.8 %; HCT - HEMATOCRIT 42.1 % (37.0-47.0); HGB - HEMOGLOBIN 13.7 g/dL (12.0-16.0); LYMPHOCYTES # (AUTO) 2.9 10^3/uL (1.5-3.5); MEAN CORPUSCULAR HEMOGLOBIN 29.5 pg (27.0-31.0); MEAN CORPUSCULAR HGB CONC 32.5 g/dL (32.0-36.0); MEAN CORPUSCULAR VOLUME 90.5 fL (81.0-99.0); MEAN PLATELET VOLUME 9.3 fL (7.9-10.8); MONOCYTES # (AUTO) 1.3 10^3/uL (0.0-1.0); MONOCYTES % (AUTO) 11.1 %; NEUTROPHILS # (AUTO) 7.2 10^3/uL (1.5-6.6); PLT - PLATELET COUNT 239 10^3/uL (130-450); RED BLOOD COUNT 4.65 10^6/uL (4.20-5.40); RED CELL DISTRIBUTION WIDTH 13.2 % (12.0-15.0); WHITE BLOOD COUNT 11.9 x10^3/uL (4.8-10.8)
[2021-04-30 19:15] LABS: INR 1.4 (0.8-1.2)
[2021-04-30 19:23] LABS: ALBUMIN 4.1 g/dL (3.2-5.5); ALBUMIN/GLOBULIN RATIO 1.1 (1.0-2.2); BILIRUBIN,TOTAL 0.6 mg/dL (0.2-1.0); CALCIUM 9.3 mg/dL (8.5-10.3); CREATININE 0.7 mg/dL (0.4-1.0); POTASSIUM 4.1 mmol/L (3.5-5.0); TOTAL PROTEIN 7.7 g/dL (6.7-8.2)
== END 2021-04-30 19:47 | disposition left against medical advice (07) ==
LOC: ED 18:36
DX: Z53.21 Procedure and treatment not carried out due to patient leaving prior to being seen by health care provider (principal)
CPT/HCPCS: 36415; 80053; 81001; 81003; 83690; 85025; 85610; 87086

== ENCOUNTER 2024-02-13 06:05 | Emergency (ER) | payer MEDICAID, OTHER ==
--- NOTE | 2024-02-13 06:57 | ED Physician Documentation ---
History of Present Illness - Stated complaint Stated Complaint: GI PX - Chief complaint Chief Complaint: Ext Problem - History obtained from History obtained from: Patient - Additonal information Additional information: The patient comes to the emergency department chief complaint of pain in her proximal most left thigh anteromedially. She began to feel the pain yesterday but it felt more of a vague pain going down toward her knee. She states that she went through the day, her little more and then this morning after sleeping, she states it hurts so bad she could not get up and stand on it. The patient states that it hurts worse when she either flexes at the hip or when she externally rotates her thigh and knee and tries to bring her heel up on her other thigh. The patient states that she has not had any swelling. No calf pain. She had a saphenous vein stripping in the leg a few years back for varicose veins. The patient denies any history of DVT. She has not had any distinct trauma and actually feels like she did a little less activity these last few days than usual. No numbness or tingling. No abdominal pain or flank pain. No dysuria. No history of hernia. No mass. No other complaints at this time. PD PAST MEDICAL HISTORY - Past Medical History Cardiovascular: None Respiratory: Asthma, Shortness of breath Neuro: None Endocrine/Autoimmune: None GI: None SCALE MODEL MAKER: None : None HEENT: None Psych: None Musculoskeletal: None Derm: None - Past Surgical History Past Surgical History: No Ortho: Carpal Tunnel surgery /SCALE MODEL MAKER: section, Breast implants - Present Medications Home Medications: Ambulatory Orders Medication Instructions Recorded Confirmed Escitalopram [Lexapro] 10 mg PO DAILY 07/08/20 02/13/24 Metformin HCl [Metformin ER 1,000 mg PO HS 02/13/24 02/13/24 Osmotic] Metformin HCl [Metformin ER 500 mg PO DAILY 02/13/24 02/13/24 Osmotic] Naltrexone HCl 25 mg PO DAILY 02/13/24 02/13/24 buPROPion HCL [Bupropion Xl] 300 mg PO DAILY 02/13/24 02/13/24 traZODone [Desyrel] 50 mg PO HS 02/13/24 02/13/24 - Allergies Allergies/Adverse Reactions: Allergies Allergy/AdvReac Type Severity Reaction Status Date / Time penicillin V Allergy Hives Verified 02/13/24 06:19 - Social History Does the pt smoke?: No Smoking Status: Current every day smoker Does the pt drink ETOH?: No Does the pt have substance abuse?: No - Immunizations Immunizations are current?: Yes - POLST Patient has POLST: No PD ED PE NORMAL - Vitals Vital signs reviewed: Yes - General General: Alert and oriented X 3, No acute distress, Well developed/nourished - HEENT HEENT: Atraumatic, Moist mucous membranes - Neck Neck: Supple, no meningeal sign - Cardiac Cardiac: Strong equal pulses - Respiratory Respiratory: No respiratory distress - Abdomen Abdomen: Soft, Non tender, Non distended - Derm Derm: Normal color, Warm and dry, No rash - Extremities Extremities: No deformity, No edema, No calf tenderness / cord, Other (Limited flexion and external rotation at left hip secondary to pain; nearly full range of motion at left hip passively except mild limitation with pain with abduction and external rotation. Tenderness palpation proximal most anteromedial left thigh just inferior to inguinal ligament. No mass.) - Neuro Neuro: No motor deficit, No sensory deficit, Other (Alert, grossly intact) - Psych Psych: Normal mood, Normal affect Results - Vitals Vitals: Vital Signs - 24 hr 02/13/24 06:19 Temperature 36.3 C L Heart Rate 76 Respiratory 16 Rate Blood Pressure 143/72 H O2 Saturation 99 Oxygen O2 Source Room air PD Medical Decision Making - ED course Complexity details: considered differential, d/w patient ED course: I discussed with the patient that I suspect a musculoskeletal source of her pain most. She has not had any direct trauma to explain this, but her symptoms are also somewhat atypical of anything else including DVT and the patient does not have any evidence of hernia at this time. The patient has both tenderness to palpation and pain with position, and he feels that radiation of pain from a passing kidney stone is unlikely. I have discussed with the patient that we will get an ultrasound of her leg to look at her vasculature and evaluate for possible DVT. Patient has good pulses at this time and is neurologically intact. She has been given Toradol and Dilaudid IM for her pain. She signed ou t to Dr. Chavira at change of shift, pending results and final disposition. Departure - Departure Forms: PCP List
[2024-02-13] MEDS: HYDROmorphone 1 MG/ML CARPUJECT IM STA (06:59)
[2024-02-13] MEDS: KETOROLAC 60 MG/2 ML VIAL IM STA (07:01)
--- NOTE | 2024-02-13 08:31 | Ultrasound Report ---
PROCEDURE: Duplex Ext Veins Left INDICATIONS: pain/swelling TECHNIQUE: Real-time imaging, as well as color and pulse Doppler interrogation, were performed of the lower extr emity deep veins from the inguinal ligament to the popliteal fossa. Attempted visualization of the ca lf veins was performed. COMPARISON: None. FINDINGS: The deep veins are normally compressible, and free of intraluminal thrombus. Color and pu lse Doppler demonstrate normal phasic intraluminal flow. There is normal augmentation response to di stal compression maneuver. IMPRESSION: No deep venous thrombosis of the visualized lower extremity. Reviewed by: Alvin Edge MD on 02/13/2024 8:30 AM PDT Approved by: Alvin Edge MD on 02/13/2024 8:30 AM PDT Station ID: [id number]
--- NOTE | 2024-02-13 08:32 | XRAY Report ---
PROCEDURE: Hip w/Pelvis 2-3V LT INDICATIONS: pain, no injury TECHNIQUE: 2 views of the hip were acquired. COMPARISON: None. FINDINGS: Bones: No fractures or dislocations. Mild bilateral hip joint degeneration. No suspicious bony lesio ns. Soft tissues: No suspicious soft tissue calcifications or masses. IMPRESSION: No acute bony abnormality. Mild degenerative changes of the bilateral hips. Reviewed by: Alvin Edge MD on 02/13/2024 8:31 AM PDT Approved by: Alvin Edge MD on 02/13/2024 8:31 AM PDT Station ID: [id number]
--- NOTE | 2024-02-13 08:47 | ED Physician Documentation ---
ED Addendum - Addendum Addendum: 02/13/24 08:41 Patient was signed out to me by Dr. Park, please see her note for full H&P on this patient. Duplex ultrasound of the left lower extremity is negative. Hip and pelvis x-ray are also negative. Patient appears to of likely muscular/soft tissue pain to the medial aspect of the left thigh. No crepitus. No ecchymosis. No evidence of necrotizing soft tissue infection. No erythema. Will place on pain medication for home and have her follow-up with her doctor for further care. Patient counseled regarding signs and symptoms for which I believe and urgent re-evaluation would be necessary. Patient with good understanding of and agreement to plan and is comfortable going home at this time This document was made in part using voice recognition software. While efforts are made to proofread this document, sound alike and grammatical errors may occur. Departure - Departure Disposition: 01 Home, Self Care Clinical Impression: Left thigh pain Condition: Good Instructions: ED Strain Muscle Ext Follow-Up: your,doctor in 1 week [Other] Prescriptions: Ibuprofen [Motrin] 800 mg PO Q8H PRN #30 tablet PRN Reason: PAIN &/OR FEVER Comments: Your prescription was sent to [facility] in [place]. Your ultrasound and x-rays do not show any acute abnormalities today. Please return if you worsen. Forms: PCP List
[2024-02-13 09:12] VITALS: BP 142/70; O2SAT 98
== END 2024-02-13 09:05 | disposition home or self-care (01) ==
LOC: ED 06:05
DX: M79.652 Pain in left thigh (principal); M25.552 Pain in left hip; M79.89 Other specified soft tissue disorders
CPT/HCPCS: 73502; 93971; 96372; 99283; 99284; J1170

== ENCOUNTER 2024-03-13 17:20 | Emergency (ER) | payer OTHER ==
[2024-03-13 17:29] VITALS: BP 152/86; O2SAT 99
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
--- NOTE | 2024-03-13 19:10 | XRAY Report ---
PROCEDURE: Foot 3+V RT INDICATIONS: Trauma TECHNIQUE: 3 views of the foot were acquired, nonweightbearing. COMPARISON: None. FINDINGS: Bones: No fractures or dislocations. No suspicious bony lesions. Degenerative changes of the midfo ot with dorsal osteophytosis. Soft tissues: No tibiotalar joint effusion. Achilles tendon appears normal. Plantar and Achilles ca lcaneal enthesophytes. IMPRESSION: No acute bony abnormality. If there is high clinical suspicion for a radiographically occult fracture , recommend repeat imaging in 10-14 days. Reviewed by: Steve Bueno MD on 03/13/2024 6:09 PM [facility] Approved by: Steve Bueno MD on 03/13/2024 6:09 PM [facility] Station ID: [id number]
== END 2024-03-13 19:34 | disposition home or self-care (01) ==
LOC: ED 17:20
DX: S90.31XA Contusion of right foot, initial encounter (principal); W20.8XXA Other cause of strike by thrown, projected or falling object, initial encounter
CPT/HCPCS: 99283; 99284